=== PATIENT | female | born 1945 | race Hispanic/Latino ===

== ENCOUNTER → 2020-08-14 | Day surgery (SDC) | payer MEDICARE ==
[2020-08-11 11:57] LABS: BASOPHILS # (AUTO) 0.1 (0.0-0.1); BASOPHILS % 0.5 % (0.0-1.0); EOSINOPHILS # (AUTO) 0.3 (0.0-0.4); EOSINOPHILS % 2.9 % (0.0-6.0); HEMATOCRIT 43.4 % (34.2-44.1); HEMOGLOBIN 13.1 g/dL (12.0-16.0); LYMPHOCYTES # (AUTO) 3.4 (1.0-3.2); LYMPHOCYTES % 35.6 % (18.0-39.1); MEAN CORPUSCULAR HEMOGLOBIN 28.1 pg (28-32); MEAN CORPUSCULAR HGB CONC 30.2 g/dL (31-35); MEAN CORPUSCULAR VOLUME 92.9 fL (81-99); MONOCYTES # (AUTO) 0.6 (0.2-0.8); MONOCYTES % 5.7 % (4.4-11.3); NEUTROPHILS # (AUTO) 5.3 (2.1-6.9); PLATELET COUNT 217 x10e3/uL (140-360); RED BLOOD COUNT 4.67 x10e6/uL (3.6-5.1); RED CELL DISTRIBUTION WIDTH 15.5 % (11.7-14.4)
[2020-08-11 12:19] LABS: ANION GAP 14.1 mmol/L (8-16); CALCIUM 9.3 mg/dL (8.4-10.2); CREATININE, SERUM 0.94 mg/dL (0.57-1.11); POTASSIUM 5.1 mmol/L (3.5-5.1)
[~2020-08-14] MED LIST: B&O 60MG R/S 60 MG SUPP PR ONE; FLUCONAZOLE 200 MG/100 ML 100 ML IV ONE; GABAPENTIN300 MG PO; IOPAMIDOL 300MG/ML 50ML INFUS..BTL IV ONE; LIDOCAINE HCL 2% LOCAL INJ 5 ML SDV VIAL INJ ONE; MECLIZINE HCL12.5 MG PO; METOPROLOL TART25 MG PO; PIPERACILLIN/TAZOBAC 3.375 GM VIAL ONE; PROPOFOL IV EMULSION 10 MG/ML 20 ML VIAL ONE; SEVOFLURANE INHAL SOLN 250 ML PEN BTL ONE; SODIUM CHLORIDE 0.9% 50ML 50 ML ONE; VASOTEC10 M1 PO
[2020-08-14 13:25] VITALS: BP 119/68
== END | disposition home or self-care (01) ==
LOC: OR 08:57
PROVIDERS: ATTEND Urology
DX: N20.1 Calculus of ureter (principal); N39.0 Urinary tract infection, site not specified; N13.30 Unspecified hydronephrosis; Z43.6 Encounter for attention to other artificial openings of urinary tract; N13.8 Other obstructive and reflux uropathy; N28.89 Other specified disorders of kidney and ureter; G57.90 Unspecified mononeuropathy of unspecified lower limb; E11.9 Type 2 diabetes mellitus without complications; I10 Essential (primary) hypertension; M19.90 Unspecified osteoarthritis, unspecified site; Z01.812 Encounter for preprocedural laboratory examination; Z01.818 Encounter for other preprocedural examination; Z20.822 Contact with and (suspected) exposure to COVID-19; Z99.3 Dependence on wheelchair; Z86.19 Personal history of other infectious and parasitic diseases
CPT/HCPCS: 36415; 50389; 52332; 52344; 71046; 74018; 74420; 80048; 84550; 85025; 88300; C1758; C2617; J1450; J2001; J2543; J2704; Q9967; U0002

== ENCOUNTER 2020-08-20 18:11 | Inpatient (IN) | payer MEDICARE ==
[~2020-08-20] VITALS: Ht 162.6 cm; Wt 79.8 kg
[~2020-08-20 18:11] MED LIST changes: -B&O 60MG R/S 60 MG SUPP PR ONE; -FLUCONAZOLE 200 MG/100 ML 100 ML IV ONE; -IOPAMIDOL 300MG/ML 50ML INFUS..BTL IV ONE; -LIDOCAINE HCL 2% LOCAL INJ 5 ML SDV VIAL INJ ONE; -PIPERACILLIN/TAZOBAC 3.375 GM VIAL ONE; -PROPOFOL IV EMULSION 10 MG/ML 20 ML VIAL ONE; -SEVOFLURANE INHAL SOLN 250 ML PEN BTL ONE; -SODIUM CHLORIDE 0.9% 50ML 50 ML ONE
[2020-08-20] MEDS ORDERED: SODIUM CHLORIDE 0.9% 1000ML 1,000 ML IV STA ×2 (18:21)
[2020-08-20] MEDS ORDERED: ASPIRIN 81 MG CHEW TAB PO ONE (18:30)
[2020-08-20] MEDS ORDERED: SODIUM CHLORIDE 0.9% 500ML 500 ML IV STA (18:54)
[2020-08-20] MEDS ORDERED: NOREPINEPHRINE INJ 4MG/4ML 8 MG in DEXTROSE 5% 250ML 250 ML IV STA (19:06)
[2020-08-20 19:08] LABS: BASOPHILS # (AUTO) 0.1 (0.0-0.1); BASOPHILS % 0.3 % (0.0-1.0); EOSINOPHILS % 0.1 % (0.0-6.0); HEMATOCRIT 38.9 % (34.2-44.1); HEMOGLOBIN 12.3 g/dL (12.0-16.0); LYMPHOCYTES # (AUTO) 1.5 (1.0-3.2); LYMPHOCYTES % 6.8 % (18.0-39.1); MEAN CORPUSCULAR HEMOGLOBIN 28.4 pg (28-32); MEAN CORPUSCULAR HGB CONC 31.6 g/dL (31-35); MEAN CORPUSCULAR VOLUME 89.8 fL (81-99); MONOCYTES % 4.9 % (4.4-11.3); NEUTROPHILS # (AUTO) 18.6 (2.1-6.9); NEUTROPHILS % 86.5 % (38.7-80.0); PLATELET COUNT 244 x10e3/uL (140-360); RED BLOOD COUNT 4.33 x10e6/uL (3.6-5.1); RED CELL DISTRIBUTION WIDTH 15.1 % (11.7-14.4)
[2020-08-20] MEDS ORDERED: PIPERACILLIN/TAZOBAC 3.375 GM in SODIUM CHLORIDE 0.9% 50ML 50 ML IV ONE (19:10)
[2020-08-20 19:20] LABS: CLARITY,URINE CLOUDY (CLEAR); COLOR,URINE AMBER (YELLOW); KETONES,URINE NEGATIVE (NEGATIVE); LEUKOCYTE ESTERASE ,URINE LARGE (NEGATIVE); NITRITE,URINE NEGATIVE (NEGATIVE); PROTEIN,URINE DIPSTICK >=300 (NEGATIVE); URINE UROBILINOGEN 0.2 mg/dL (0.2 - 1)
[2020-08-20 19:25] LABS: ALBUMIN 2.9 g/dL (3.5-5.0); ALBUMIN/GLOBULIN RATIO 0.7 (0.8-2.0); ANION GAP 17.9 mmol/L (8-16); CALCIUM 9.8 mg/dL (8.4-10.2); CREATININE, SERUM 1.55 mg/dL (0.57-1.11); POTASSIUM 3.9 mmol/L (3.5-5.1)
[2020-08-20 19:31] LABS: CREATINE KINASE MB 0.3 ng/mL (0-5.0)
[2020-08-20 19:32] LABS: BACTERIA,URINE MODERATE /HPF; WBC,URINE (MAN) >50 /HPF (0-5)
[2020-08-20] MEDS ORDERED: SODIUM CHLORIDE 0.9% 50ML 50 ML ONE (20:18)
[2020-08-20] MEDS ORDERED: IOPAMIDOL 370 MG/ML 200 ML INFUS..BTL INJ ONE (20:18)
[2020-08-20] MEDS ORDERED: NOREPINEPHRINE INJ 4MG/4ML 8 MG in DEXTROSE 5% 250ML 250 ML IV PRN (20:30)
[2020-08-20] MEDS: SODIUM CHLORIDE 0.9% 1000ML 1,000 ML IV SCH (21:39)
[2020-08-20 22:45] VITALS: BP 87/59
[2020-08-20 23:00] VITALS: BP 79/56
[2020-08-20] MEDS ORDERED: NOREPINEPHRINE 8 MG/D5W 250 ML 250 ML ONE (23:58)
[2020-08-21] VITALS (26 sets, daily range): BP systolic 54–132; BP diastolic 38–93
[2020-08-21] MEDS ORDERED: SODIUM CHLORIDE 0.9% 1000ML 1,000 ML IV ONE
[2020-08-21] MEDS ORDERED: MAGNESIUM/ALUMINUM/SIMETHICONE 30 ML UDC PO PRN (00:15)
[2020-08-21] MEDS ORDERED: GENTAMICIN 120MG/NS 100ML 100 ML IV ONE (00:15)
[2020-08-21] MEDS ORDERED: VANCOMYCIN 1GM/NS 250 ML 250 ML IV ONE (00:15)
[2020-08-21] MEDS ORDERED: PIPERACILLIN/TAZOBAC 3.375 GM VIAL ONE (05:38)
[2020-08-21] MEDS ORDERED: SODIUM CHLORIDE 0.9% 0 ML ONE (05:39)
[2020-08-21] MEDS ORDERED: SODIUM CHLORIDE 0.9% 50ML 50 ML ONE (05:40)
[2020-08-21] MEDS: ACETAMINOPHEN 325 MG TAB PO PRN ×2 (05:42→06:29)
[2020-08-21] MEDS ORDERED: PIPER-TAZ 3.375 GM / NS 50ML IV SCH (06:00)
[2020-08-21] MEDS ORDERED: ZOLPIDEM TARTRATE 5 MG TAB PO PRN (06:00)
[2020-08-21] MEDS ORDERED: DOCUSATE SODIUM 100 MG CAP PO PRN (06:00)
[2020-08-21] MEDS ORDERED: MECLIZINE HCL 12.5 MG TAB PO PRN (06:00)
[2020-08-21 06:10] LABS: BASOPHILS # (AUTO) 0.1 (0.0-0.1); BASOPHILS % 0.3 % (0.0-1.0); EOSINOPHILS % 0.1 % (0.0-6.0); HEMATOCRIT 33.7 % (34.2-44.1); HEMOGLOBIN 10.6 g/dL (12.0-16.0); LYMPHOCYTES # (AUTO) 1.6 (1.0-3.2); LYMPHOCYTES % 6.5 % (18.0-39.1); MEAN CORPUSCULAR HEMOGLOBIN 28.5 pg (28-32); MEAN CORPUSCULAR HGB CONC 31.5 g/dL (31-35); MEAN CORPUSCULAR VOLUME 90.6 fL (81-99); MONOCYTES # (AUTO) 1.1 (0.2-0.8); MONOCYTES % 4.6 % (4.4-11.3); NEUTROPHILS # (AUTO) 20.7 (2.1-6.9); NEUTROPHILS % 84.8 % (38.7-80.0); PLATELET COUNT 197 x10e3/uL (140-360); RED BLOOD COUNT 3.72 x10e6/uL (3.6-5.1); RED CELL DISTRIBUTION WIDTH 15.4 % (11.7-14.4)
[2020-08-21 06:23] LABS: ALBUMIN 2.3 g/dL (3.5-5.0); ALBUMIN/GLOBULIN RATIO 0.6 (0.8-2.0); ANION GAP 14.1 mmol/L (8-16); CALCIUM 8.5 mg/dL (8.4-10.2); CREATININE, SERUM 1.23 mg/dL (0.57-1.11)
[2020-08-21 06:34] LABS: CREATINE KINASE MB 0.4 ng/mL (0-5.0)
[2020-08-21 06:48] LABS: POTASSIUM 5.1 mmol/L (3.5-5.1)
[2020-08-21] MEDS: SODIUM CHLORIDE 0.9% 1000ML 1,000 ML IV SCH (07:26)
[2020-08-21 07:29] LABS: BAND NEUTROPHILS % (MANUAL) 15 %; LYMPHOCYTES % (MANUAL) 3 % (19-48); METAMYELOCYTES % (MANUAL) 1 % (0-0); MONOCYTES % (MANUAL) 1 % (3.4-9.0); NEUTROPHILS % (MANUAL) 80 % (40-74)
[2020-08-21 07:30] LABS: ANISOCYTOSIS SLIGHT; PLATELET ESTIMATE ADEQUATE; PLATELET MORPHOLOGY COMMENT FEW LARGE; RBC MORPHOLOGY COMMENT NORMAL
[2020-08-21 07:35] LABS: CHOL/HDL RATIO 4.4 (3.0-3.6)
[2020-08-21] MEDS: HEPARIN SOD (PORCINE) 5,000 UNIT/ML VIAL SC SCH ×2 (08:19→20:16)
[2020-08-21 11:25] LABS: CREATINE KINASE MB 0.3 ng/mL (0-5.0)
[2020-08-21] MEDS: ONDANSETRON HCL INJ 2MG/ML 2ML 2 MG/ML VIAL IV PRN (14:05)
[2020-08-21] MEDS: PIPERACILLIN/TAZOBAC 3.375 GM in SODIUM CHLORIDE 0.9% 50ML 50 ML IV SCH ×2 (14:05→20:13)
[2020-08-21] MEDS ORDERED: LACTATED RINGER'S 1,000 ML INJ ONE (15:15)
[2020-08-21] MEDS: GABAPENTIN 300 MG CAP PO SCH (20:13)
[2020-08-21 20:14] LABS: CREATINE KINASE MB 0.3 ng/mL (0-5.0)
[2020-08-21] MEDS: PROMETHAZINE 12.5MG/ NACL 0.9% 12.5 MG/50 ML BAG IV PRN (20:55)
[2020-08-21] MEDS: HYDROMORPHONE 1MG/1ML INJ IV PRN (21:06)
[2020-08-22] VITALS (21 sets, daily range): BP systolic 93–154; BP diastolic 53–84
[2020-08-22] MEDS: HYDROMORPHONE 1MG/1ML INJ IV PRN (03:05)
[2020-08-22] MEDS: PROMETHAZINE 12.5MG/ NACL 0.9% 12.5 MG/50 ML BAG IV PRN ×2 (03:05→15:53)
[2020-08-22 04:03] LABS: BASOPHILS # (AUTO) 0.1 (0.0-0.1); BASOPHILS % 0.4 % (0.0-1.0); EOSINOPHILS # (AUTO) 0.1 (0.0-0.4); EOSINOPHILS % 0.5 % (0.0-6.0); HEMOGLOBIN 10.8 g/dL (12.0-16.0); LYMPHOCYTES # (AUTO) 2.4 (1.0-3.2); LYMPHOCYTES % 8.2 % (18.0-39.1); MEAN CORPUSCULAR HGB CONC 30.9 g/dL (31-35); MEAN CORPUSCULAR VOLUME 90.7 fL (81-99); MONOCYTES # (AUTO) 1.4 (0.2-0.8); MONOCYTES % 4.9 % (4.4-11.3); NEUTROPHILS # (AUTO) 23.5 (2.1-6.9); NEUTROPHILS % 80.5 % (38.7-80.0); PLATELET COUNT 227 x10e3/uL (140-360); RED BLOOD COUNT 3.86 x10e6/uL (3.6-5.1); RED CELL DISTRIBUTION WIDTH 15.9 % (11.7-14.4)
[2020-08-22 04:22] LABS: ALBUMIN 2.2 g/dL (3.5-5.0); ALBUMIN/GLOBULIN RATIO 0.6 (0.8-2.0); ANION GAP 13.5 mmol/L (8-16); CALCIUM 8.4 mg/dL (8.4-10.2); CREATININE, SERUM 1.3 mg/dL (0.57-1.11); POTASSIUM 4.5 mmol/L (3.5-5.1)
[2020-08-22] MEDS ORDERED: LACTATED RINGER'S 1,000 ML ONE (05:51)
[2020-08-22] MEDS: PIPERACILLIN/TAZOBAC 3.375 GM in SODIUM CHLORIDE 0.9% 50ML 50 ML IV SCH (06:07)
[2020-08-22] MEDS ORDERED: MEROPENEM 500MG 500 MG in SODIUM CHLORIDE 0.9% 50ML 50 ML IV SCH (08:16)
[2020-08-22] MEDS: HEPARIN SOD (PORCINE) 5,000 UNIT/ML VIAL SC SCH ×2 (08:58→20:22)
[2020-08-22] MEDS ORDERED: ACETAMINOPHEN/CODEINE 300MG - 30MG TAB PO PRN (09:00)
[2020-08-22] MEDS ORDERED: ACETAMINOPHEN 1000 MG/100 ML IV PRN (10:30)
[2020-08-22] MEDS ORDERED: GENTAMICIN SULFATE 200 MG in SODIUM CHLORIDE 0.9% 100 ML IV ONE (16:45)
[2020-08-22] MEDS ORDERED: ACETAMINOPHEN 1000 MG/100 ML 100 ML IV ONE (18:33)
[2020-08-22] MEDS ORDERED: PANTOPRAZOLE 40 MG 10ML VIAL IV STA (18:58)
[2020-08-22] MEDS ORDERED: LACTATED RINGER'S 1,000 ML INJ ONE (19:00)
[2020-08-22] MEDS ORDERED: SODIUM CHLORIDE 0.9% 500ML 500 ML ONE (19:27)
[2020-08-22] MEDS: ONDANSETRON HCL INJ 2MG/ML 2ML 2 MG/ML VIAL IV PRN (20:22)
[2020-08-22] MEDS: GABAPENTIN 300 MG CAP PO SCH (20:22)
[2020-08-22] MEDS: MEROPENEM 500MG/ NS 50ML 50 ML IV SCH (20:22)
[2020-08-22] MEDS: TRAMADOL HCL 50 MG TAB PO PRN (20:22)
[2020-08-22] MEDS: METRONIDAZOLE 500MG/NS 100ML 100 ML IV SCH (20:22)
[2020-08-23] VITALS (15 sets, daily range): BP systolic 103–154; BP diastolic 59–82
[2020-08-23] MEDS ORDERED: LACTATED RINGER'S 1,000 ML ONE (04:31)
[2020-08-23] MEDS: PROMETHAZINE 12.5MG/ NACL 0.9% 12.5 MG/50 ML BAG IV PRN (04:36)
[2020-08-23] MEDS: LACTATED RINGER'S 1,000 ML INJ SCH ×2 (04:43→16:38)
[2020-08-23] MEDS: MEROPENEM 500MG/ NS 50ML 50 ML IV SCH ×3 (04:43→22:00)
[2020-08-23] MEDS: METRONIDAZOLE 500MG/NS 100ML 100 ML IV SCH (04:53)
[2020-08-23 05:26] LABS: ALBUMIN/GLOBULIN RATIO 0.5 (0.8-2.0); ANION GAP 11.4 mmol/L (8-16); CALCIUM 8.7 mg/dL (8.4-10.2); CREATININE, SERUM 1.05 mg/dL (0.57-1.11); POTASSIUM 4.4 mmol/L (3.5-5.1)
[2020-08-23 06:53] LABS: BASOPHILS # (AUTO) 0.1 (0.0-0.1); BASOPHILS % 0.3 % (0.0-1.0); EOSINOPHILS # (AUTO) 0.4 (0.0-0.4); EOSINOPHILS % 2.2 % (0.0-6.0); HEMATOCRIT 33.6 % (34.2-44.1); HEMOGLOBIN 10.3 g/dL (12.0-16.0); LYMPHOCYTES # (AUTO) 2.4 (1.0-3.2); LYMPHOCYTES % 14.3 % (18.0-39.1); MEAN CORPUSCULAR HEMOGLOBIN 28.1 pg (28-32); MEAN CORPUSCULAR HGB CONC 30.7 g/dL (31-35); MEAN CORPUSCULAR VOLUME 91.6 fL (81-99); MONOCYTES # (AUTO) 0.7 (0.2-0.8); MONOCYTES % 4.2 % (4.4-11.3); NEUTROPHILS % 78.1 % (38.7-80.0); PLATELET COUNT 214 x10e3/uL (140-360); RED BLOOD COUNT 3.67 x10e6/uL (3.6-5.1); RED CELL DISTRIBUTION WIDTH 15.5 % (11.7-14.4)
[2020-08-23] MEDS: PANTOPRAZOLE 40 MG 10ML VIAL IV SCH ×2 (08:00→16:38)
[2020-08-23] MEDS: HEPARIN SOD (PORCINE) 5,000 UNIT/ML VIAL SC SCH ×2 (08:01→21:00)
[2020-08-23] MEDS ORDERED: SODIUM CHLORIDE 0.9% 250ML 250 ML ONE (12:38)
[2020-08-23] MEDS: TRAMADOL HCL 50 MG TAB PO PRN (13:00)
[2020-08-23] MEDS: GABAPENTIN 300 MG CAP PO SCH (21:00)
[2020-08-24] VITALS (8 sets, daily range): BP systolic 131–149; BP diastolic 67–76
[2020-08-24] MEDS: ACETAMINOPHEN 325 MG TAB PO PRN ×2 (02:06→14:52)
[2020-08-24] MEDS: MEROPENEM 500MG/ NS 50ML 50 ML IV SCH ×3 (06:00→21:15)
[2020-08-24] MEDS: LACTATED RINGER'S 1,000 ML INJ SCH ×2 (06:40→20:47)
[2020-08-24] MEDS: PANTOPRAZOLE 40 MG 10ML VIAL IV SCH ×2 (09:00→16:25)
[2020-08-24] MEDS: HEPARIN SOD (PORCINE) 5,000 UNIT/ML VIAL SC SCH ×2 (09:00→20:52)
[2020-08-24 09:51] LABS: BASOPHILS % 0.5 % (0.0-1.0); EOSINOPHILS # (AUTO) 0.4 (0.0-0.4); HEMATOCRIT 32.3 % (34.2-44.1); LYMPHOCYTES # (AUTO) 1.8 (1.0-3.2); LYMPHOCYTES % 30.2 % (18.0-39.1); MEAN CORPUSCULAR HEMOGLOBIN 27.5 pg (28-32); MONOCYTES # (AUTO) 0.5 (0.2-0.8); MONOCYTES % 8.6 % (4.4-11.3); NEUTROPHILS # (AUTO) 3.2 (2.1-6.9); NEUTROPHILS % 54.4 % (38.7-80.0); PLATELET COUNT 202 x10e3/uL (140-360); RED BLOOD COUNT 3.63 x10e6/uL (3.6-5.1); RED CELL DISTRIBUTION WIDTH 15.1 % (11.7-14.4)
[2020-08-24 10:07] LABS: ANION GAP 10.7 mmol/L (8-16); BLOOD UREA NITROGEN 16 mg/dL (7-26); BUN/CREATININE RATIO 20 (6-25); CALCIUM 8.4 mg/dL (8.4-10.2); CARBON DIOXIDE 26 mmol/L (22-29); CHLORIDE 106 mmol/L (98-107); CREATININE, SERUM 0.82 mg/dL (0.57-1.11); EST GLOMERULAR FILTRATION RATE > 60 ML/MIN (60-); GLUCOSE 76 mg/dL (74-118); POTASSIUM 3.7 mmol/L (3.5-5.1); SODIUM 139 mmol/L (136-145)
[2020-08-24] MEDS: GABAPENTIN 300 MG CAP PO SCH (20:58)
[2020-08-25] VITALS (8 sets, daily range): BP systolic 137–159; BP diastolic 71–85
[2020-08-25] MEDS: ACETAMINOPHEN 325 MG TAB PO PRN ×2 (01:44→21:48)
[2020-08-25] MEDS: MEROPENEM 500MG/ NS 50ML 50 ML IV SCH ×3 (05:35→21:48)
[2020-08-25 06:09] LABS: BASOPHILS % 0.4 % (0.0-1.0); EOSINOPHILS # (AUTO) 0.2 (0.0-0.4); EOSINOPHILS % 4.7 % (0.0-6.0); HEMATOCRIT 31.9 % (34.2-44.1); HEMOGLOBIN 10.2 g/dL (12.0-16.0); LYMPHOCYTES # (AUTO) 1.7 (1.0-3.2); LYMPHOCYTES % 36.6 % (18.0-39.1); MEAN CORPUSCULAR HEMOGLOBIN 27.9 pg (28-32); MEAN CORPUSCULAR VOLUME 87.4 fL (81-99); MONOCYTES # (AUTO) 0.5 (0.2-0.8); MONOCYTES % 11.8 % (4.4-11.3); NEUTROPHILS # (AUTO) 2.1 (2.1-6.9); NEUTROPHILS % 45.8 % (38.7-80.0); PLATELET COUNT 218 x10e3/uL (140-360); RED BLOOD COUNT 3.65 x10e6/uL (3.6-5.1)
[2020-08-25 06:53] LABS: ANION GAP 8.4 mmol/L (8-16); BLOOD UREA NITROGEN 9 mg/dL (7-26); BUN/CREATININE RATIO 11 (6-25); CARBON DIOXIDE 27 mmol/L (22-29); CHLORIDE 103 mmol/L (98-107); CREATININE, SERUM 0.83 mg/dL (0.57-1.11); EST GLOMERULAR FILTRATION RATE > 60 ML/MIN (60-); GLUCOSE 150 mg/dL (74-118); POTASSIUM 3.4 mmol/L (3.5-5.1); SODIUM 135 mmol/L (136-145)
[2020-08-25 08:13] LABS: ANISOCYTOSIS SLIGHT; EOSINOPHILS % (MANUAL) 5 % (0-7); LYMPHOCYTES % (MANUAL) 31 % (19-48); MONOCYTES % (MANUAL) 11 % (3.4-9.0); MYELOCYTES % (MANUAL) 1 % (0-0); NEUTROPHILS % (MANUAL) 46 % (40-74); PLATELET ESTIMATE ADEQUATE
[2020-08-25 08:14] LABS: PLATELET MORPHOLOGY COMMENT FEW LARGE; RBC MORPHOLOGY COMMENT NORMAL
[2020-08-25] MEDS: HEPARIN SOD (PORCINE) 5,000 UNIT/ML VIAL SC SCH ×2 (08:32→21:46)
[2020-08-25] MEDS: PANTOPRAZOLE 40 MG 10ML VIAL IV SCH ×2 (08:32→16:30)
[2020-08-25] MEDS: LACTATED RINGER'S 1,000 ML INJ SCH ×2 (16:21→23:46)
[2020-08-25] MEDS: GABAPENTIN 300 MG CAP PO SCH (21:45)
[2020-08-26] VITALS (8 sets, daily range): BP systolic 138–159; BP diastolic 77–86
[2020-08-26] MEDS: MEROPENEM 500MG/ NS 50ML 50 ML IV SCH ×3 (05:30→21:25)
[2020-08-26 08:30] LABS: BASOPHILS # (AUTO) 0.1 (0.0-0.1); BASOPHILS % 0.9 % (0.0-1.0); EOSINOPHILS # (AUTO) 0.3 (0.0-0.4); HEMATOCRIT 33.6 % (34.2-44.1); HEMOGLOBIN 10.5 g/dL (12.0-16.0); LYMPHOCYTES # (AUTO) 2.1 (1.0-3.2); MEAN CORPUSCULAR HEMOGLOBIN 27.3 pg (28-32); MEAN CORPUSCULAR HGB CONC 31.3 g/dL (31-35); MEAN CORPUSCULAR VOLUME 87.5 fL (81-99); MONOCYTES # (AUTO) 0.6 (0.2-0.8); MONOCYTES % 11.5 % (4.4-11.3); NEUTROPHILS # (AUTO) 2.3 (2.1-6.9); PLATELET COUNT 250 x10e3/uL (140-360); RED BLOOD COUNT 3.84 x10e6/uL (3.6-5.1); RED CELL DISTRIBUTION WIDTH 15.1 % (11.7-14.4)
[2020-08-26 08:44] LABS: ANION GAP 11.5 mmol/L (8-16); BLOOD UREA NITROGEN 7 mg/dL (7-26); BUN/CREATININE RATIO 9 (6-25); CALCIUM 8.8 mg/dL (8.4-10.2); CARBON DIOXIDE 26 mmol/L (22-29); CHLORIDE 104 mmol/L (98-107); CREATININE, SERUM 0.76 mg/dL (0.57-1.11); EST GLOMERULAR FILTRATION RATE > 60 ML/MIN (60-); GLUCOSE 88 mg/dL (74-118); POTASSIUM 3.5 mmol/L (3.5-5.1); SODIUM 138 mmol/L (136-145)
[2020-08-26] MEDS: PANTOPRAZOLE 40 MG 10ML VIAL IV SCH ×2 (09:02→17:17)
[2020-08-26] MEDS: HEPARIN SOD (PORCINE) 5,000 UNIT/ML VIAL SC SCH ×2 (09:03→21:20)
[2020-08-26] MEDS: LACTATED RINGER'S 1,000 ML INJ SCH (12:38)
[2020-08-26] MEDS: GABAPENTIN 300 MG CAP PO SCH (21:20)
[2020-08-27] VITALS (8 sets, daily range): BP systolic 131–154; BP diastolic 62–93
[2020-08-27] MEDS: LACTATED RINGER'S 1,000 ML INJ SCH ×2 (03:25→15:35)
[2020-08-27] MEDS: ACETAMINOPHEN 325 MG TAB PO PRN (03:31)
[2020-08-27] MEDS: MEROPENEM 500MG/ NS 50ML 50 ML IV SCH ×3 (06:30→21:25)
[2020-08-27] MEDS: PANTOPRAZOLE 40 MG 10ML VIAL IV SCH ×2 (08:58→17:36)
[2020-08-27] MEDS: HEPARIN SOD (PORCINE) 5,000 UNIT/ML VIAL SC SCH ×2 (08:59→21:25)
[2020-08-27] MEDS: GABAPENTIN 300 MG CAP PO SCH (21:25)
[2020-08-28] VITALS: BP 158/76
[2020-08-28 04:00] VITALS: BP 138/75
[2020-08-28] MEDS: LACTATED RINGER'S 1,000 ML INJ SCH (05:13)
[2020-08-28] MEDS: MEROPENEM 500MG/ NS 50ML 50 ML IV SCH ×2 (05:41→14:02)
[2020-08-28 08:07] VITALS: BP 140/75
[2020-08-28 08:45] VITALS: BP 140/75
[2020-08-28] MEDS: PANTOPRAZOLE 40 MG 10ML VIAL IV SCH (08:48)
[2020-08-28 11:57] VITALS: BP 143/74
[2020-08-28] MEDS ORDERED: PANTOPRAZOLE SO40 MG PO (12:46)
[2020-08-28] MEDS ORDERED: ONDANSETRON HCL 4 MG ORAL DISINTEGRATING TAB PO PRN (13:45)
[2020-08-28] MEDS ORDERED: PANTOPRAZOLE SOD 40 MG TABEC PO SCH (16:30)
== END 2020-08-28 15:20 | disposition home or self-care (01) | DRG 698 ==
LOC: ER 19:11 → ERHOLD 19:14 → ICU 23:00 → MED/SURG3 08-23 11:11
PROVIDERS: ADMIT Internal Medicine; ATTEND Internal Medicine
PROC: 02HV33Z Insertion of Infusion Device into Superior Vena Cava, Percutaneous Approach (ICD-10-PCS; principal; 2020-08-25)
PROC: B548ZZA Ultrasonography of Superior Vena Cava, Guidance (ICD-10-PCS; 2020-08-25)
DX: T83.511A Infection and inflammatory reaction due to indwelling urethral catheter, initial encounter (principal); A41.51 Sepsis due to Escherichia coli [E. coli]; R65.21 Severe sepsis with septic shock; G93.41 Metabolic encephalopathy; N17.9 Acute kidney failure, unspecified; N10 Acute pyelonephritis; Z16.12 Extended spectrum beta lactamase (ESBL) resistance; Z93.6 Other artificial openings of urinary tract status; Z87.442 Personal history of urinary calculi; Z87.440 Personal history of urinary (tract) infections; K83.8 Other specified diseases of biliary tract; T83.592A Infection and inflammatory reaction due to indwelling ureteral stent, initial encounter; R73.9 Hyperglycemia, unspecified; E66.9 Obesity, unspecified; Z68.30 Body mass index [BMI] 30.0-30.9, adult; B96.20 Unspecified Escherichia coli [E. coli] as the cause of diseases classified elsewhere; I12.9 Hypertensive chronic kidney disease with stage 1 through stage 4 chronic kidney disease, or unspecified chronic kidney disease; N18.9 Chronic kidney disease, unspecified; Z20.822 Contact with and (suspected) exposure to COVID-19
CPT/HCPCS: 36415; 36569; 51700; 71045; 74176; 74177; 80048; 80053; 80061; 81001; 82550; 82553; 83036; 83605; 84484; 85025; 87040; 87071; 87086; 87186; 87205; 93005; 93306; 97139; 99285; J1170; J1580; J1644; J2185; J2405; J2543; J2550; J3370; J7030; J7040; J7050; J7121; Q9967; U0002

== ENCOUNTER 2020-09-17 07:56 | Inpatient (IN) | payer MEDICARE ==
[~2020-09-17] VITALS: Ht 162.6 cm; Wt 79.8 kg
[~2020-09-17 07:56] MED LIST changes: +PANTOPRAZOLE SO40 MG PO
[2020-09-17] MEDS ORDERED: SODIUM CHLORIDE 0.9% 1000ML 1,000 ML IV STA (09:05)
[2020-09-17 09:17] LABS: BASOPHILS # (AUTO) 0.1 (0.0-0.1); BASOPHILS % 0.4 % (0.0-1.0); EOSINOPHILS # (AUTO) 0.1 (0.0-0.4); HEMATOCRIT 39.1 % (34.2-44.1); HEMOGLOBIN 12.3 g/dL (12.0-16.0); LYMPHOCYTES # (AUTO) 1.9 (1.0-3.2); LYMPHOCYTES % 15.7 % (18.0-39.1); MEAN CORPUSCULAR HEMOGLOBIN 27.2 pg (28-32); MEAN CORPUSCULAR HGB CONC 31.5 g/dL (31-35); MEAN CORPUSCULAR VOLUME 86.5 fL (81-99); MONOCYTES # (AUTO) 0.9 (0.2-0.8); MONOCYTES % 7.4 % (4.4-11.3); NEUTROPHILS % 75.2 % (38.7-80.0); PLATELET COUNT 239 x10e3/uL (140-360); RED BLOOD COUNT 4.52 x10e6/uL (3.6-5.1); RED CELL DISTRIBUTION WIDTH 14.6 % (11.7-14.4)
[2020-09-17 09:31] LABS: CLARITY,URINE CLOUDY (CLEAR); COLOR,URINE YELLOW (YELLOW); KETONES,URINE TRACE (NEGATIVE); LEUKOCYTE ESTERASE ,URINE SMALL (NEGATIVE); NITRITE,URINE POSITIVE (NEGATIVE); PROTEIN,URINE DIPSTICK 2+ (NEGATIVE); URINE UROBILINOGEN 0.2 mg/dL (0.2 - 1)
[2020-09-17 09:34] LABS: INR 1.07; PROTHROMBIN TIME 14.6 seconds (11.9-14.5)
[2020-09-17 09:35] LABS: ALBUMIN 3.4 g/dL (3.5-5.0); ALBUMIN/GLOBULIN RATIO 0.7 (0.8-2.0); CALCIUM 10.3 mg/dL (8.4-10.2); CREATININE, SERUM 1.14 mg/dL (0.57-1.11); MAGNESIUM 1.6 MG/DL (1.3-2.1); PARTIAL THROMBOPLASTIN TIME 37.1 seconds (23.8-35.5)
[2020-09-17] MEDS ORDERED: OXYBUTYNIN CHLOR5 MG PO (09:35)
[2020-09-17] MEDS ORDERED: CEFUROXIME250 MG PO (09:35)
[2020-09-17] MEDS ORDERED: TYLENOL # 31 EA PO (09:35)
[2020-09-17] MEDS ORDERED: VASOTEC10 MG PO (09:35)
[2020-09-17] MEDS ORDERED: LOPRESSOR25 MG PO (09:35)
[2020-09-17 09:41] LABS: CREATINE KINASE MB 0.2 ng/mL (0-5.0)
[2020-09-17 09:44] LABS: B-TYPE NATRIURETIC PEPTIDE2 79.6 pg/mL (0-100)
[2020-09-17 09:46] LABS: BACTERIA,URINE MANY /HPF; EPITHELIAL CELLS,URINE FEW /LPF; RBC,URINE >50 /HPF (0-5); WBC,URINE (MAN) >50 /HPF (0-5)
[2020-09-17] MEDS: MEROPENEM 1GM 100 ML IV SCH ×2 (10:02→17:00)
[2020-09-17] MEDS ORDERED: ONDANSETRON HCL INJ 2MG/ML 2ML 2 MG/ML VIAL IV PRN (10:15)
[2020-09-17] MEDS: SODIUM CHLORIDE 0.9% 1000ML 1,000 ML IV SCH ×2 (10:50→12:50)
[2020-09-17 11:31] VITALS: BP 127/76
[2020-09-17 12:15] VITALS: BP 127/76
[2020-09-17] MEDS ORDERED: ACETAMINOPHEN 325 MG TAB PO PRN (13:15)
[2020-09-17] MEDS ORDERED: ACETAMINOPHEN 325 MG TAB ONE (13:16)
[2020-09-17 16:49] VITALS: BP 139/68
[2020-09-17] MEDS ORDERED: DOCUSATE SODIUM 100 MG CAP PO PRN (17:00)
[2020-09-17 20:00] VITALS: BP 127/80
[2020-09-17] MEDS: ACETAMINOPHEN 325 MG TAB PO PRN (20:00)
[2020-09-17] MEDS ORDERED: ZOLPIDEM TARTRATE 5 MG TAB PO PRN (21:00)
[2020-09-17] MEDS: ONDANSETRON HCL INJ 2MG/ML 2ML 2 MG/ML VIAL IV PRN (21:24)
[2020-09-18] VITALS (7 sets, daily range): BP systolic 134–160; BP diastolic 67–93
[2020-09-18] MEDS: SODIUM CHLORIDE 0.9% 1000ML 1,000 ML IV SCH ×2 (01:12→16:54)
[2020-09-18] MEDS: MEROPENEM 1GM 100 ML IV SCH ×3 (01:12→17:52)
[2020-09-18 06:00] LABS: BASOPHILS # (AUTO) 0.1 (0.0-0.1); BASOPHILS % 0.6 % (0.0-1.0); EOSINOPHILS # (AUTO) 0.1 (0.0-0.4); EOSINOPHILS % 0.9 % (0.0-6.0); HEMATOCRIT 35.1 % (34.2-44.1); HEMOGLOBIN 11.1 g/dL (12.0-16.0); LYMPHOCYTES # (AUTO) 1.2 (1.0-3.2); LYMPHOCYTES % 10.9 % (18.0-39.1); MEAN CORPUSCULAR HEMOGLOBIN 27.7 pg (28-32); MEAN CORPUSCULAR HGB CONC 31.6 g/dL (31-35); MEAN CORPUSCULAR VOLUME 87.5 fL (81-99); MONOCYTES # (AUTO) 1.1 (0.2-0.8); MONOCYTES % 9.9 % (4.4-11.3); NEUTROPHILS # (AUTO) 8.4 (2.1-6.9); NEUTROPHILS % 77.3 % (38.7-80.0); PLATELET COUNT 209 x10e3/uL (140-360); RED BLOOD COUNT 4.01 x10e6/uL (3.6-5.1); RED CELL DISTRIBUTION WIDTH 14.6 % (11.7-14.4)
[2020-09-18 06:39] LABS: ALANINE AMINOTRANSFERASE 12 IU/L (0-55); ALBUMIN 2.7 g/dL (3.5-5.0); ALBUMIN/GLOBULIN RATIO 0.7 (0.8-2.0); ALKALINE PHOSPHATASE 66 IU/L (40-150); ANION GAP 13.8 mmol/L (8-16); BLOOD UREA NITROGEN 16 mg/dL (7-26); BUN/CREATININE RATIO 18 (6-25); CALCIUM 8.8 mg/dL (8.4-10.2); CARBON DIOXIDE 23 mmol/L (22-29); CHLORIDE 105 mmol/L (98-107); CREATININE, SERUM 0.87 mg/dL (0.57-1.11); EST GLOMERULAR FILTRATION RATE > 60 ML/MIN (60-); GLUCOSE 98 mg/dL (74-118); POTASSIUM 4.8 mmol/L (3.5-5.1); SODIUM 137 mmol/L (136-145)
[2020-09-18] MEDS: ACETAMINOPHEN 325 MG TAB PO PRN ×2 (09:10→18:15)
[2020-09-18] MEDS: METOPROLOL TARTRATE 25 MG TAB PO SCH (09:21)
[2020-09-18] MEDS: ONDANSETRON HCL INJ 2MG/ML 2ML 2 MG/ML VIAL IV PRN (17:51)
[2020-09-19] VITALS (8 sets, daily range): BP systolic 151–173; BP diastolic 70–86
[2020-09-19] MEDS: SODIUM CHLORIDE 0.9% 1000ML 1,000 ML IV SCH ×3 (01:50→20:52)
[2020-09-19] MEDS: MEROPENEM 1GM 100 ML IV SCH ×2 (01:50→10:33)
[2020-09-19] MEDS ORDERED: SODIUM CHLORIDE 0.9% 50ML 50 ML ONE (01:53)
[2020-09-19] MEDS: ACETAMINOPHEN 325 MG TAB PO PRN ×2 (04:31→20:52)
[2020-09-19] MEDS: ONDANSETRON HCL INJ 2MG/ML 2ML 2 MG/ML VIAL IV PRN ×3 (09:09→18:45)
[2020-09-19] MEDS: METOPROLOL TARTRATE 25 MG TAB PO SCH (10:33)
[2020-09-19] MEDS: PIPERACILLIN/TAZOBAC 3.375 GM in SODIUM CHLORIDE 0.9% 50ML 50 ML IV SCH (20:52)
[2020-09-20] VITALS (8 sets, daily range): BP systolic 134–164; BP diastolic 71–82
[2020-09-20] MEDS: PIPERACILLIN/TAZOBAC 3.375 GM in SODIUM CHLORIDE 0.9% 50ML 50 ML IV SCH ×3 (05:27→21:16)
[2020-09-20 06:54] LABS: BASOPHILS % 0.6 % (0.0-1.0); EOSINOPHILS # (AUTO) 0.4 (0.0-0.4); EOSINOPHILS % 5.7 % (0.0-6.0); HEMATOCRIT 33.8 % (34.2-44.1); LYMPHOCYTES # (AUTO) 1.7 (1.0-3.2); MEAN CORPUSCULAR HEMOGLOBIN 27.7 pg (28-32); MEAN CORPUSCULAR HGB CONC 32.5 g/dL (31-35); MEAN CORPUSCULAR VOLUME 85.1 fL (81-99); MONOCYTES # (AUTO) 0.7 (0.2-0.8); MONOCYTES % 9.6 % (4.4-11.3); NEUTROPHILS # (AUTO) 4.2 (2.1-6.9); NEUTROPHILS % 59.8 % (38.7-80.0); PLATELET COUNT 260 x10e3/uL (140-360); RED BLOOD COUNT 3.97 x10e6/uL (3.6-5.1); RED CELL DISTRIBUTION WIDTH 13.8 % (11.7-14.4)
[2020-09-20 07:27] LABS: ANION GAP 15.6 mmol/L (8-16); BLOOD UREA NITROGEN 10 mg/dL (7-26); BUN/CREATININE RATIO 13 (6-25); CALCIUM 8.8 mg/dL (8.4-10.2); CARBON DIOXIDE 22 mmol/L (22-29); CHLORIDE 106 mmol/L (98-107); CREATININE, SERUM 0.78 mg/dL (0.57-1.11); EST GLOMERULAR FILTRATION RATE > 60 ML/MIN (60-); GLUCOSE 77 mg/dL (74-118); POTASSIUM 3.6 mmol/L (3.5-5.1); SODIUM 140 mmol/L (136-145)
[2020-09-20] MEDS: ACETAMINOPHEN 325 MG TAB PO PRN ×2 (07:46→23:46)
[2020-09-20] MEDS: SODIUM CHLORIDE 0.9% 1000ML 1,000 ML IV SCH ×2 (07:46→18:15)
[2020-09-20] MEDS: METOPROLOL TARTRATE 25 MG TAB PO SCH (08:03)
[2020-09-21] VITALS: BP 164/75
[2020-09-21 04:00] VITALS: BP 149/79
[2020-09-21] MEDS: SODIUM CHLORIDE 0.9% 1000ML 1,000 ML IV SCH ×2 (04:15→14:15)
[2020-09-21] MEDS: PIPERACILLIN/TAZOBAC 3.375 GM in SODIUM CHLORIDE 0.9% 50ML 50 ML IV SCH ×2 (05:41→14:00)
[2020-09-21] MEDS ORDERED: NITROFURANTOIN100 MG PO (06:19)
[2020-09-21 07:32] VITALS: BP 160/87
[2020-09-21 07:39] VITALS: BP 160/87
[2020-09-21] MEDS: METOPROLOL TARTRATE 25 MG TAB PO SCH (07:49)
[2020-09-21 08:57] LABS: BASOPHILS # (AUTO) 0.1 (0.0-0.1); BASOPHILS % 0.8 % (0.0-1.0); EOSINOPHILS # (AUTO) 0.3 (0.0-0.4); EOSINOPHILS % 4.3 % (0.0-6.0); HEMATOCRIT 37.4 % (34.2-44.1); HEMOGLOBIN 12.3 g/dL (12.0-16.0); LYMPHOCYTES # (AUTO) 2.5 (1.0-3.2); LYMPHOCYTES % 34.4 % (18.0-39.1); MEAN CORPUSCULAR HEMOGLOBIN 27.8 pg (28-32); MEAN CORPUSCULAR HGB CONC 32.9 g/dL (31-35); MEAN CORPUSCULAR VOLUME 84.4 fL (81-99); MONOCYTES # (AUTO) 0.5 (0.2-0.8); MONOCYTES % 6.9 % (4.4-11.3); NEUTROPHILS # (AUTO) 3.8 (2.1-6.9); NEUTROPHILS % 53.3 % (38.7-80.0); PLATELET COUNT 306 x10e3/uL (140-360); RED BLOOD COUNT 4.43 x10e6/uL (3.6-5.1); RED CELL DISTRIBUTION WIDTH 13.8 % (11.7-14.4)
[2020-09-21 09:20] LABS: BLOOD UREA NITROGEN 10 mg/dL (7-26); BUN/CREATININE RATIO 11 (6-25); CALCIUM 9.3 mg/dL (8.4-10.2); CARBON DIOXIDE 23 mmol/L (22-29); CHLORIDE 104 mmol/L (98-107); CREATININE, SERUM 0.88 mg/dL (0.57-1.11); EST GLOMERULAR FILTRATION RATE > 60 ML/MIN (60-); GLUCOSE 99 mg/dL (74-118); SODIUM 141 mmol/L (136-145)
[2020-09-21 11:12] VITALS: BP 166/76
[2020-09-21] MEDS ORDERED: ONDANSETRON HCL 4 MG ORAL DISINTEGRATING TAB PO PRN (12:45)
[2020-09-21] MEDS ORDERED: FOSFOMYCIN TROMETHAMINE 3 GM PACKET PO ONE (14:15)
== END 2020-09-21 14:55 | disposition home or self-care (01) | DRG 698 ==
LOC: ER 08:33 → ERHOLD 10:04 → MED/SURG3 11:31
PROVIDERS: ADMIT Internal Medicine; ATTEND Internal Medicine
DX: T83.592A Infection and inflammatory reaction due to indwelling ureteral stent, initial encounter (principal); A41.51 Sepsis due to Escherichia coli [E. coli]; N17.9 Acute kidney failure, unspecified; N39.0 Urinary tract infection, site not specified; Z16.12 Extended spectrum beta lactamase (ESBL) resistance; E83.52 Hypercalcemia; E66.9 Obesity, unspecified; Z68.30 Body mass index [BMI] 30.0-30.9, adult; B96.20 Unspecified Escherichia coli [E. coli] as the cause of diseases classified elsewhere; Z20.822 Contact with and (suspected) exposure to COVID-19
CPT/HCPCS: 36415; 51700; 71045; 80048; 80053; 80061; 81001; 82550; 82553; 83036; 83605; 83735; 83880; 84484; 85025; 85610; 85730; 87040; 87086; 87186; 93005; 99284; J2405; J2543; J7030; U0002

== ENCOUNTER → 2020-09-30 | Day surgery (SDC) | payer MEDICARE ==
[2020-09-28 11:36] LABS: BASOPHILS % 0.4 % (0.0-1.0); EOSINOPHILS # (AUTO) 0.2 (0.0-0.4); EOSINOPHILS % 3.5 % (0.0-6.0); HEMATOCRIT 37.8 % (34.2-44.1); HEMOGLOBIN 11.9 g/dL (12.0-16.0); LYMPHOCYTES # (AUTO) 2.6 (1.0-3.2); LYMPHOCYTES % 38.3 % (18.0-39.1); MEAN CORPUSCULAR HEMOGLOBIN 27.7 pg (28-32); MEAN CORPUSCULAR HGB CONC 31.5 g/dL (31-35); MEAN CORPUSCULAR VOLUME 87.9 fL (81-99); MONOCYTES # (AUTO) 0.5 (0.2-0.8); MONOCYTES % 6.9 % (4.4-11.3); NEUTROPHILS # (AUTO) 3.4 (2.1-6.9); NEUTROPHILS % 50.8 % (38.7-80.0); PLATELET COUNT 387 x10e3/uL (140-360); RED CELL DISTRIBUTION WIDTH 14.2 % (11.7-14.4)
[2020-09-28 12:09] LABS: ANION GAP 14.1 mmol/L (8-16); CALCIUM 10.5 mg/dL (8.4-10.2); CREATININE, SERUM 0.92 mg/dL (0.57-1.11); POTASSIUM 5.1 mmol/L (3.5-5.1)
[~2020-09-30] MED LIST changes: +B&O 60MG R/S 60 MG SUPP PR ONE; +CEFUROXIME250 MG PO; +GENTAMICIN 80MG/NS 100 ML 100 ML IV ONE; +IOPAMIDOL 300MG/ML 50ML INFUS..BTL IV ONE; +LIDOCAINE HCL 2% JELLY 5 ML TUBE ONE; +LIDOCAINE HCL 2% LOCAL INJ 5 ML SDV VIAL INJ ONE; +LOPRESSOR25 MG PO; +MEPERIDINE HCL INJ 25 MG/ML VIAL ONE; +MEROPENEM 1GM 100 ML IV ONE; +NEURONTIN100 MG PO; +NITROFURANTOIN100 MG PO; +ONDANSETRON HCL INJ 2MG/ML 2ML 2 MG/ML VIAL ONE; +OXYBUTYNIN CHLOR5 MG PO; +PROPOFOL IV EMULSION 10 MG/ML 20 ML VIAL ONE; +SEVOFLURANE INHAL SOLN 250 ML PEN BTL ONE; +TYLENOL # 31 EA PO; +VASOTEC10 MG PO
[2020-09-30 13:54] VITALS: BP 129/63
== END | disposition home or self-care (01) ==
LOC: OR 10:19
PROVIDERS: ATTEND Urology
DX: N13.30 Unspecified hydronephrosis (principal); Z46.6 Encounter for fitting and adjustment of urinary device; N39.0 Urinary tract infection, site not specified; N28.89 Other specified disorders of kidney and ureter; E11.22 Type 2 diabetes mellitus with diabetic chronic kidney disease; I12.9 Hypertensive chronic kidney disease with stage 1 through stage 4 chronic kidney disease, or unspecified chronic kidney disease; N18.9 Chronic kidney disease, unspecified; N28.1 Cyst of kidney, acquired; N81.10 Cystocele, unspecified; N81.6 Rectocele; N36.2 Urethral caruncle; N95.2 Postmenopausal atrophic vaginitis; N81.89 Other female genital prolapse; K42.9 Umbilical hernia without obstruction or gangrene; K40.90 Unilateral inguinal hernia, without obstruction or gangrene, not specified as recurrent; E66.9 Obesity, unspecified; Z88.0 Allergy status to penicillin; Z01.810 Encounter for preprocedural cardiovascular examination; Z01.812 Encounter for preprocedural laboratory examination; Z20.822 Contact with and (suspected) exposure to COVID-19
CPT/HCPCS: 36415; 52351; 74420; 80048; 85025; 93005; C1758; C1769; J1580; J2001 ×2; J2175; J2185; J2405; J2704; Q9967; U0002

== ENCOUNTER 2020-11-07 11:25 | Emergency (ER) | payer OTHER, MEDICARE ==
[~2020-11-07] VITALS: Ht 162.6 cm; Wt 79.8 kg
[~2020-11-07 11:25] MED LIST changes: -B&O 60MG R/S 60 MG SUPP PR ONE; -GENTAMICIN 80MG/NS 100 ML 100 ML IV ONE; -IOPAMIDOL 300MG/ML 50ML INFUS..BTL IV ONE; -LIDOCAINE HCL 2% JELLY 5 ML TUBE ONE; -LIDOCAINE HCL 2% LOCAL INJ 5 ML SDV VIAL INJ ONE; -MEPERIDINE HCL INJ 25 MG/ML VIAL ONE; -MEROPENEM 1GM 100 ML IV ONE; -ONDANSETRON HCL INJ 2MG/ML 2ML 2 MG/ML VIAL ONE; -PROPOFOL IV EMULSION 10 MG/ML 20 ML VIAL ONE; -SEVOFLURANE INHAL SOLN 250 ML PEN BTL ONE
[2020-11-07 13:03] VITALS: BP 104/59
== END 2020-11-07 13:10 | disposition home or self-care (01) ==
LOC: ER 11:32
DX: S90.31XA Contusion of right foot, initial encounter (principal); W01.0XXA Fall on same level from slipping, tripping and stumbling without subsequent striking against object, initial encounter; Y93.01 Activity, walking, marching and hiking; Y92.008 Other place in unspecified non-institutional (private) residence as the place of occurrence of the external cause; I10 Essential (primary) hypertension; F41.9 Anxiety disorder, unspecified; Z87.442 Personal history of urinary calculi
CPT/HCPCS: 99283

== ENCOUNTER → 2021-03-17 | Outpatient (CLI) | payer MEDICARE | LOC: US 10:57 | PROVIDERS: ATTEND Urology | DX: N39.0 Urinary tract infection, site not specified (principal) | CPT/HCPCS: 74018; 76770 ==

== ENCOUNTER 2021-04-06 18:06 | Emergency (ER) | payer MEDICARE ==
[~2021-04-06] VITALS: Ht 162.6 cm; Wt 79.8 kg
[2021-04-06] MEDS ORDERED: KETOROLAC TROMETHAMINE 30 MG/ML VIAL IM PRN (18:30)
[2021-04-06] MEDS ORDERED: Morphine 2mg Syringe 2 MG/ML SYR IM PRN (18:30)
[2021-04-06 18:34] LABS: COLOR,URINE STRAW (YELLOW)
[2021-04-06 18:35] LABS: CLARITY,URINE CLOUDY (CLEAR); KETONES,URINE NEGATIVE (NEGATIVE); LEUKOCYTE ESTERASE ,URINE MODERATE (NEGATIVE); NITRITE,URINE POSITIVE (NEGATIVE); PROTEIN,URINE DIPSTICK >=300 (NEGATIVE); URINE UROBILINOGEN 0.2 mg/dL (0.2 - 1)
[2021-04-06 18:47] LABS: BACTERIA,URINE MODERATE /HPF; WBC,URINE (MAN) 21-50 /HPF (0-5)
[2021-04-06] MEDS ORDERED: CEFTRIAXONE 1 GM VIAL IM NR (19:00)
[2021-04-06] MEDS ORDERED: LIDOCAINE HCL 2% LOCAL 20 ML VIAL ONE (19:37)
[2021-04-06 20:05] VITALS: BP 159/77
== END 2021-04-06 20:07 | disposition home or self-care (01) ==
LOC: ER 18:25
DX: S39.012A Strain of muscle, fascia and tendon of lower back, initial encounter (principal); N39.0 Urinary tract infection, site not specified; I10 Essential (primary) hypertension; F41.9 Anxiety disorder, unspecified; R73.03 Prediabetes
CPT/HCPCS: 81001; 99282; J0696; J1885; J2001; J2270

== ENCOUNTER 2021-04-19 12:43 | Inpatient (IN) | payer MEDICARE, OTHER ==
[~2021-04-19] VITALS: Ht 165.1 cm; Wt 74.8 kg
[2021-04-19] MEDS ORDERED: ACETAMINOPHEN 325 MG TAB PO STA (12:50)
[2021-04-19 13:11] LABS: BASOPHILS # (AUTO) 0.1 (0.0-0.1); BASOPHILS % 0.5 % (0.0-1.0); EOSINOPHILS # (AUTO) 0.1 (0.0-0.4); EOSINOPHILS % 1.1 % (0.0-6.0); HEMATOCRIT 44.4 % (34.2-44.1); LYMPHOCYTES # (AUTO) 2.6 (1.0-3.2); MEAN CORPUSCULAR HEMOGLOBIN 29.6 pg (28-32); MEAN CORPUSCULAR HGB CONC 31.5 g/dL (31-35); MEAN CORPUSCULAR VOLUME 93.9 fL (81-99); MONOCYTES # (AUTO) 0.9 (0.2-0.8); MONOCYTES % 8.4 % (4.4-11.3); NEUTROPHILS # (AUTO) 6.9 (2.1-6.9); NEUTROPHILS % 65.1 % (38.7-80.0); PLATELET COUNT 192 x10e3/uL (140-360); RED BLOOD COUNT 4.73 x10e6/uL (3.6-5.1); RED CELL DISTRIBUTION WIDTH 15.3 % (11.7-14.4)
[2021-04-19] MEDS ORDERED: LACTATED RINGER'S 1,000 ML INJ ONE (13:30)
[2021-04-19 13:31] LABS: ALBUMIN 2.5 g/dL (3.5-5.0); ALBUMIN/GLOBULIN RATIO 0.5 (0.8-2.0); ANION GAP 21.9 mmol/L (8-16); CALCIUM 8.8 mg/dL (8.4-10.2); CREATININE, SERUM 2.38 mg/dL (0.57-1.11); POTASSIUM 5.9 mmol/L (3.5-5.1)
[2021-04-19 13:35] LABS: CLARITY,URINE CLEAR (CLEAR); COLOR,URINE YELLOW (YELLOW); KETONES,URINE TRACE (NEGATIVE); LEUKOCYTE ESTERASE ,URINE TRACE (NEGATIVE); NITRITE,URINE NEGATIVE (NEGATIVE); PROTEIN,URINE DIPSTICK NEGATIVE (NEGATIVE); URINE UROBILINOGEN 0.2 mg/dL (0.2 - 1)
[2021-04-19] MEDS ORDERED: LACTATED RINGER'S 1,000 ML ONE (13:37)
[2021-04-19 13:39] LABS: BACTERIA,URINE FEW /HPF; EPITHELIAL CELLS,URINE MODERATE /LPF; MUCUS,URINE FEW (RARE); RBC,URINE 0-5 /HPF (0-5)
[2021-04-19] MEDS ORDERED: SODIUM CHLORIDE 0.9% 1000ML 2,390 ML IV SCH (13:45)
[2021-04-19] MEDS ORDERED: SODIUM CHLORIDE 0.9% 1000ML 1,000 ML ONE (13:59)
[2021-04-19] MEDS ORDERED: CEFEPIME 1 GM in SODIUM CHLORIDE 0.9% 50ML 50 ML IV ONE (14:00)
[2021-04-19] MEDS: SODIUM CHLORIDE 0.9% 1000ML 1,000 ML IV SCH ×2 (15:39→19:30)
[2021-04-19] MEDS ORDERED: GABAPENTIN600 MG PO (16:39)
[2021-04-19] MEDS ORDERED: VESICARE5 MG PO (16:39)
[2021-04-19] MEDS ORDERED: SIMVASTATIN20 MG PO (16:39)
[2021-04-19] MEDS ORDERED: CYCLOBENZAPRINE10 MG PO (16:39)
[2021-04-19 17:32] VITALS: BP 108/66
[2021-04-19 18:08] VITALS: BP 108/66
[2021-04-19 18:10] VITALS: BP 108/66
[2021-04-19 20:18] VITALS: BP 116/64
[2021-04-19 21:00] VITALS: BP 116/64
[2021-04-20] VITALS (10 sets, daily range): BP systolic 99–150; BP diastolic 63–81
[2021-04-20] MEDS: SODIUM CHLORIDE 0.9% 1000ML 1,000 ML IV SCH ×3 (04:19→17:54)
[2021-04-20] MEDS: ACETAMINOPHEN 325 MG TAB PO PRN ×2 (05:48→11:54)
[2021-04-20] MEDS ORDERED: ACETAMINOPHEN 325 MG TAB ONE (05:58)
[2021-04-20 07:47] LABS: ANION GAP 17.1 mmol/L (8-16); CALCIUM 7.8 mg/dL (8.4-10.2); CREATININE, SERUM 1.15 mg/dL (0.57-1.11); POTASSIUM 5.1 mmol/L (3.5-5.1)
[2021-04-20] MEDS ORDERED: CYCLOBENZAPRINE HCL 10 MG TAB PO SCH (15:00)
[2021-04-20] MEDS: CEFTRIAXONE 1 GM in SODIUM CHLORIDE 0.9% 50ML 50 ML IV SCH (15:08)
[2021-04-20] MEDS: GABAPENTIN 300 MG CAP PO SCH (15:14)
[2021-04-20] MEDS ORDERED: METHYLPREDNISOLONE SOD SUCC 40 MG/ML VIAL 1ML IV NR (17:30)
[2021-04-20] MEDS ORDERED: DIPHENHYDRAMINE HCL 25 MG CAP PO NR (17:30)
[2021-04-20] MEDS: PROMETHAZINE 12.5MG/ NACL 0.9% 12.5 MG/50 ML BAG IV PRN (17:54)
[2021-04-20] MEDS: SIMVASTATIN 20 MG TAB PO SCH (21:00)
[2021-04-20] MEDS: FAMOTIDINE 20 MG/2 ML VIAL IV SCH (21:14)
[2021-04-20] MEDS: METHYLPREDNISOLONE SOD SUCC 40 MG/ML VIAL 1ML IV SCH (21:15)
[2021-04-20] MEDS ORDERED: DIPHENHYDRAMINE HCL INJ 50 MG/ML VIAL IV ONE (21:15)
[2021-04-21] VITALS (9 sets, daily range): BP systolic 130–146; BP diastolic 65–92
[2021-04-21 00:02] LABS: BASOPHILS % 0.5 % (0.0-1.0); EOSINOPHILS # (AUTO) 0.2 (0.0-0.4); EOSINOPHILS % 1.8 % (0.0-6.0); HEMATOCRIT 42.1 % (34.2-44.1); HEMOGLOBIN 12.4 g/dL (12.0-16.0); LYMPHOCYTES # (AUTO) 1.2 (1.0-3.2); LYMPHOCYTES % 14.3 % (18.0-39.1); MEAN CORPUSCULAR HEMOGLOBIN 29.6 pg (28-32); MEAN CORPUSCULAR HGB CONC 29.5 g/dL (31-35); MEAN CORPUSCULAR VOLUME 100.5 fL (81-99); MONOCYTES # (AUTO) 0.6 (0.2-0.8); MONOCYTES % 6.5 % (4.4-11.3); NEUTROPHILS # (AUTO) 6.4 (2.1-6.9); NEUTROPHILS % 76.2 % (38.7-80.0); PLATELET COUNT 184 x10e3/uL (140-360); RED BLOOD COUNT 4.19 x10e6/uL (3.6-5.1); RED CELL DISTRIBUTION WIDTH 15.9 % (11.7-14.4)
[2021-04-21] MEDS: SODIUM CHLORIDE 0.9% 1000ML 1,000 ML IV SCH ×4 (00:27→20:53)
[2021-04-21] MEDS: DIPHENHYDRAMINE HCL INJ 50 MG/ML VIAL IV SCH ×3 (02:14→17:26)
[2021-04-21 05:00] LABS: BASOPHILS % 0.3 % (0.0-1.0); HEMATOCRIT 35.5 % (34.2-44.1); HEMOGLOBIN 11.2 g/dL (12.0-16.0); LYMPHOCYTES # (AUTO) 0.7 (1.0-3.2); LYMPHOCYTES % 11.7 % (18.0-39.1); MEAN CORPUSCULAR HEMOGLOBIN 29.4 pg (28-32); MEAN CORPUSCULAR HGB CONC 31.5 g/dL (31-35); MEAN CORPUSCULAR VOLUME 93.2 fL (81-99); MONOCYTES # (AUTO) 0.1 (0.2-0.8); MONOCYTES % 1.4 % (4.4-11.3); NEUTROPHILS # (AUTO) 5.4 (2.1-6.9); NEUTROPHILS % 85.8 % (38.7-80.0); PLATELET COUNT 180 x10e3/uL (140-360); RED BLOOD COUNT 3.81 x10e6/uL (3.6-5.1); RED CELL DISTRIBUTION WIDTH 14.6 % (11.7-14.4)
[2021-04-21 05:23] LABS: CALCIUM 7.3 mg/dL (8.4-10.2); CREATININE, SERUM 0.82 mg/dL (0.57-1.11)
[2021-04-21] MEDS: METHYLPREDNISOLONE SOD SUCC 40 MG/ML VIAL 1ML IV SCH ×3 (06:04→20:53)
[2021-04-21] MEDS: FAMOTIDINE 20 MG/2 ML VIAL IV SCH ×3 (06:04→20:53)
[2021-04-21] MEDS: SOLIFENACIN SUCCINATE 5 MG TAB PO SCH (08:01)
[2021-04-21] MEDS: METOPROLOL TARTRATE 25 MG TAB PO SCH (08:01)
[2021-04-21] MEDS: CEFTRIAXONE 1 GM in SODIUM CHLORIDE 0.9% 50ML 50 ML IV SCH (08:01)
[2021-04-21] MEDS: GABAPENTIN 300 MG CAP PO SCH ×2 (08:01→17:00)
[2021-04-21 09:42] LABS: LYMPHOCYTES % (MANUAL) 11 % (19-48); MONOCYTES % (MANUAL) 1 % (3.4-9.0); NEUTROPHILS % (MANUAL) 88 % (40-74)
[2021-04-21 09:43] LABS: PLATELET ESTIMATE ADEQUATE; PLATELET MORPHOLOGY COMMENT NORMAL; RBC MORPHOLOGY COMMENT NORMAL
[2021-04-21] MEDS: SIMVASTATIN 20 MG TAB PO SCH (20:53)
[2021-04-22] VITALS (7 sets, daily range): BP systolic 129–171; BP diastolic 44–117
[2021-04-22] MEDS: DIPHENHYDRAMINE HCL INJ 50 MG/ML VIAL IV SCH ×3 (02:14→17:05)
[2021-04-22] MEDS: SODIUM CHLORIDE 0.9% 1000ML 1,000 ML IV SCH ×3 (03:44→17:05)
[2021-04-22] MEDS: METHYLPREDNISOLONE SOD SUCC 40 MG/ML VIAL 1ML IV SCH ×3 (05:49→22:02)
[2021-04-22] MEDS: FAMOTIDINE 20 MG/2 ML VIAL IV SCH (05:49)
[2021-04-22 07:19] LABS: HEMATOCRIT 32.9 % (34.2-44.1); HEMOGLOBIN 10.6 g/dL (12.0-16.0); LYMPHOCYTES # (AUTO) 0.7 (1.0-3.2); LYMPHOCYTES % 8.5 % (18.0-39.1); MEAN CORPUSCULAR HEMOGLOBIN 29.7 pg (28-32); MEAN CORPUSCULAR HGB CONC 32.2 g/dL (31-35); MEAN CORPUSCULAR VOLUME 92.2 fL (81-99); MONOCYTES # (AUTO) 0.2 (0.2-0.8); MONOCYTES % 2.7 % (4.4-11.3); NEUTROPHILS # (AUTO) 7.5 (2.1-6.9); PLATELET COUNT 182 x10e3/uL (140-360); RED BLOOD COUNT 3.57 x10e6/uL (3.6-5.1); RED CELL DISTRIBUTION WIDTH 14.6 % (11.7-14.4)
[2021-04-22 07:52] LABS: ANION GAP 15.7 mmol/L (8-16); CALCIUM 7.2 mg/dL (8.4-10.2); CREATININE, SERUM 0.91 mg/dL (0.57-1.11); POTASSIUM 4.7 mmol/L (3.5-5.1)
[2021-04-22] MEDS: GABAPENTIN 300 MG CAP PO SCH ×3 (09:30→20:46)
[2021-04-22] MEDS: METOPROLOL TARTRATE 25 MG TAB PO SCH ×2 (09:30→22:04)
[2021-04-22] MEDS: SOLIFENACIN SUCCINATE 5 MG TAB PO SCH (09:30)
[2021-04-22] MEDS: MEROPENEM 500 MG in SODIUM CHLORIDE 0.9% 50ML 50 ML IV SCH ×2 (13:23→22:03)
[2021-04-22] MEDS: FAMOTIDINE 20 MG TAB PO SCH ×2 (13:24→22:03)
[2021-04-22] MEDS: SIMVASTATIN 20 MG TAB PO SCH (20:47)
[2021-04-22] MEDS ORDERED: NIFEDIPINE CR 30 MG TAB PO SCH (22:45)
[2021-04-23] VITALS (8 sets, daily range): BP systolic 127–184; BP diastolic 61–87
[2021-04-23] MEDS: DIPHENHYDRAMINE HCL INJ 50 MG/ML VIAL IV SCH ×3 (02:00→18:05)
[2021-04-23] MEDS: METOPROLOL TARTRATE 25 MG TAB PO SCH ×2 (06:00→14:00)
[2021-04-23] MEDS: MEROPENEM 500 MG in SODIUM CHLORIDE 0.9% 50ML 50 ML IV SCH ×2 (06:00→13:53)
[2021-04-23] MEDS: FAMOTIDINE 20 MG TAB PO SCH ×2 (06:00→13:54)
[2021-04-23] MEDS: METHYLPREDNISOLONE SOD SUCC 40 MG/ML VIAL 1ML IV SCH (08:12)
[2021-04-23] MEDS: SODIUM CHLORIDE 0.9% 1000ML 1,000 ML IV SCH ×2 (09:39→18:05)
[2021-04-23] MEDS: SOLIFENACIN SUCCINATE 5 MG TAB PO SCH (09:42)
[2021-04-23] MEDS: GABAPENTIN 300 MG CAP PO SCH ×2 (09:42→21:00)
[2021-04-23] MEDS ORDERED: ENALAPRIL MALEATE 10 MG TAB PO SCH (12:15)
[2021-04-23] MEDS ORDERED: METHYLPREDNISOLONE SOD SUCC 40 MG/ML VIAL 1ML IV SCH (14:00)
[2021-04-23] MEDS: SODIUM BICARBONATE 650 MG TAB PO SCH ×2 (15:53→21:56)
[2021-04-23] MEDS: NIFEDIPINE CR 30 MG TAB PO SCH ×2 (15:54→21:57)
[2021-04-23 17:44] LABS: ANION GAP 14.3 mmol/L (8-16); CALCIUM 7.7 mg/dL (8.4-10.2); CREATININE, SERUM 0.92 mg/dL (0.57-1.11); POTASSIUM 5.3 mmol/L (3.5-5.1)
[2021-04-23] MEDS: SIMVASTATIN 20 MG TAB PO SCH (21:58)
[2021-04-24] VITALS (8 sets, daily range): BP systolic 112–139; BP diastolic 67–85
[2021-04-24] MEDS: MEROPENEM 500 MG in SODIUM CHLORIDE 0.9% 50ML 50 ML IV SCH ×4 (00:10→21:42)
[2021-04-24] MEDS: FAMOTIDINE 20 MG TAB PO SCH ×4 (00:11→21:43)
[2021-04-24] MEDS: METOPROLOL TARTRATE 25 MG TAB PO SCH ×4 (00:12→21:43)
[2021-04-24] MEDS: DIPHENHYDRAMINE HCL INJ 50 MG/ML VIAL IV SCH ×3 (02:00→17:32)
[2021-04-24] MEDS: PROMETHAZINE 12.5MG/ NACL 0.9% 12.5 MG/50 ML BAG IV PRN (08:49)
[2021-04-24] MEDS: GABAPENTIN 300 MG CAP PO SCH ×2 (09:00→21:42)
[2021-04-24] MEDS: SOLIFENACIN SUCCINATE 5 MG TAB PO SCH (09:00)
[2021-04-24] MEDS: NIFEDIPINE CR 30 MG TAB PO SCH ×2 (09:00→21:42)
[2021-04-24] MEDS: SODIUM BICARBONATE 650 MG TAB PO SCH ×3 (09:00→21:42)
[2021-04-24 10:40] LABS: ANION GAP 15.6 mmol/L (8-16); CREATININE, SERUM 0.87 mg/dL (0.57-1.11); POTASSIUM 4.6 mmol/L (3.5-5.1)
[2021-04-24] MEDS: SODIUM CHLORIDE 0.9% 1000ML 1,000 ML IV SCH (16:29)
[2021-04-24] MEDS: SIMVASTATIN 20 MG TAB PO SCH (21:42)
[2021-04-25] VITALS (7 sets, daily range): BP systolic 97–133; BP diastolic 48–78
[2021-04-25] MEDS: DIPHENHYDRAMINE HCL INJ 50 MG/ML VIAL IV SCH ×3 (01:32→17:58)
[2021-04-25] MEDS: MEROPENEM 500 MG in SODIUM CHLORIDE 0.9% 50ML 50 ML IV SCH ×3 (06:38→21:34)
[2021-04-25] MEDS: FAMOTIDINE 20 MG TAB PO SCH ×3 (06:39→21:35)
[2021-04-25] MEDS: METOPROLOL TARTRATE 25 MG TAB PO SCH ×3 (06:39→21:35)
[2021-04-25] MEDS: SODIUM BICARBONATE 650 MG TAB PO SCH ×3 (09:00→21:34)
[2021-04-25] MEDS: SOLIFENACIN SUCCINATE 5 MG TAB PO SCH (09:00)
[2021-04-25] MEDS: NIFEDIPINE CR 30 MG TAB PO SCH ×2 (09:00→21:34)
[2021-04-25] MEDS: GABAPENTIN 300 MG CAP PO SCH ×2 (09:00→21:34)
[2021-04-25] MEDS: SODIUM CHLORIDE 0.9% 1000ML 1,000 ML IV SCH (12:29)
[2021-04-25] MEDS: NYSTATIN SUSPENSION 5 ML UDC PO SCH ×2 (14:00→21:35)
[2021-04-25] MEDS: SIMVASTATIN 20 MG TAB PO SCH (21:34)
[2021-04-25] MEDS: ACETAMINOPHEN 325 MG TAB PO PRN (23:50)
[2021-04-26] VITALS (8 sets, daily range): BP systolic 103–129; BP diastolic 61–91
[2021-04-26] MEDS: DIPHENHYDRAMINE HCL INJ 50 MG/ML VIAL IV SCH ×3 (01:50→17:59)
[2021-04-26] MEDS: MEROPENEM 500 MG in SODIUM CHLORIDE 0.9% 50ML 50 ML IV SCH ×3 (05:22→22:58)
[2021-04-26] MEDS: FAMOTIDINE 20 MG TAB PO SCH ×3 (05:22→22:58)
[2021-04-26] MEDS: NYSTATIN SUSPENSION 5 ML UDC PO SCH ×3 (05:22→22:58)
[2021-04-26] MEDS: METOPROLOL TARTRATE 25 MG TAB PO SCH ×3 (05:22→22:58)
[2021-04-26] MEDS: SODIUM CHLORIDE 0.9% 1000ML 1,000 ML IV SCH (05:23)
[2021-04-26] MEDS: SOLIFENACIN SUCCINATE 5 MG TAB PO SCH (10:59)
[2021-04-26] MEDS: NIFEDIPINE CR 30 MG TAB PO SCH ×2 (10:59→22:57)
[2021-04-26] MEDS: SODIUM BICARBONATE 650 MG TAB PO SCH ×3 (10:59→22:57)
[2021-04-26] MEDS: GABAPENTIN 300 MG CAP PO SCH ×2 (10:59→22:57)
[2021-04-26] MEDS: ACETAMINOPHEN 325 MG TAB PO PRN ×2 (11:31→22:58)
[2021-04-26] MEDS: SIMVASTATIN 20 MG TAB PO SCH (22:57)
[2021-04-27] VITALS (9 sets, daily range): BP systolic 92–107; BP diastolic 52–72
[2021-04-27] MEDS: DIPHENHYDRAMINE HCL INJ 50 MG/ML VIAL IV SCH (02:05)
[2021-04-27] MEDS: SODIUM CHLORIDE 0.9% 1000ML 1,000 ML IV SCH ×2 (02:09→22:51)
[2021-04-27] MEDS: MEROPENEM 500 MG in SODIUM CHLORIDE 0.9% 50ML 50 ML IV SCH ×3 (05:56→21:49)
[2021-04-27] MEDS: ACETAMINOPHEN 325 MG TAB PO PRN ×2 (05:59→21:50)
[2021-04-27] MEDS: NYSTATIN SUSPENSION 5 ML UDC PO SCH ×3 (05:59→21:49)
[2021-04-27] MEDS: FAMOTIDINE 20 MG TAB PO SCH ×3 (05:59→21:49)
[2021-04-27] MEDS: METOPROLOL TARTRATE 25 MG TAB PO SCH ×3 (05:59→21:49)
[2021-04-27 06:47] LABS: BASOPHILS % 0.3 % (0.0-1.0); EOSINOPHILS # (AUTO) 0.2 (0.0-0.4); EOSINOPHILS % 2.2 % (0.0-6.0); HEMATOCRIT 40.4 % (34.2-44.1); HEMOGLOBIN 12.8 g/dL (12.0-16.0); LYMPHOCYTES % 19.3 % (18.0-39.1); MEAN CORPUSCULAR HEMOGLOBIN 29.4 pg (28-32); MEAN CORPUSCULAR HGB CONC 31.7 g/dL (31-35); MEAN CORPUSCULAR VOLUME 92.9 fL (81-99); MONOCYTES # (AUTO) 0.6 (0.2-0.8); MONOCYTES % 6.1 % (4.4-11.3); NEUTROPHILS # (AUTO) 7.2 (2.1-6.9); NEUTROPHILS % 69.6 % (38.7-80.0); PLATELET COUNT 188 x10e3/uL (140-360); RED BLOOD COUNT 4.35 x10e6/uL (3.6-5.1)
[2021-04-27 07:04] LABS: ANION GAP 13.9 mmol/L (8-16); CALCIUM 7.6 mg/dL (8.4-10.2); CREATININE, SERUM 0.75 mg/dL (0.57-1.11); POTASSIUM 3.9 mmol/L (3.5-5.1)
[2021-04-27] MEDS: NIFEDIPINE CR 30 MG TAB PO SCH ×2 (09:36→21:48)
[2021-04-27] MEDS: SODIUM BICARBONATE 650 MG TAB PO SCH ×3 (09:36→21:49)
[2021-04-27] MEDS: SOLIFENACIN SUCCINATE 5 MG TAB PO SCH (09:37)
[2021-04-27] MEDS ORDERED: GABAPENTIN 300 MG CAP PO SCH (21:00)
[2021-04-27] MEDS: SIMVASTATIN 20 MG TAB PO SCH (21:49)
[2021-04-27] MEDS: PROMETHAZINE 12.5MG/ NACL 0.9% 12.5 MG/50 ML BAG IV PRN (22:06)
[2021-04-28] VITALS (7 sets, daily range): BP systolic 106–122; BP diastolic 63–71
[2021-04-28] MEDS: METOPROLOL TARTRATE 25 MG TAB PO SCH ×3 (06:33→21:22)
[2021-04-28] MEDS: MEROPENEM 500 MG in SODIUM CHLORIDE 0.9% 50ML 50 ML IV SCH ×3 (06:33→21:22)
[2021-04-28] MEDS: FAMOTIDINE 20 MG TAB PO SCH ×3 (06:33→21:23)
[2021-04-28 07:17] LABS: BASOPHILS % 0.3 % (0.0-1.0); EOSINOPHILS # (AUTO) 0.2 (0.0-0.4); EOSINOPHILS % 1.9 % (0.0-6.0); HEMATOCRIT 39.1 % (34.2-44.1); HEMOGLOBIN 12.5 g/dL (12.0-16.0); LYMPHOCYTES # (AUTO) 1.7 (1.0-3.2); LYMPHOCYTES % 17.9 % (18.0-39.1); MEAN CORPUSCULAR HEMOGLOBIN 29.1 pg (28-32); MEAN CORPUSCULAR VOLUME 91.1 fL (81-99); MONOCYTES # (AUTO) 0.8 (0.2-0.8); MONOCYTES % 8.4 % (4.4-11.3); NEUTROPHILS # (AUTO) 6.6 (2.1-6.9); PLATELET COUNT 223 x10e3/uL (140-360); RED BLOOD COUNT 4.29 x10e6/uL (3.6-5.1); RED CELL DISTRIBUTION WIDTH 14.7 % (11.7-14.4)
[2021-04-28 07:56] LABS: ANION GAP 15.6 mmol/L (8-16); CALCIUM 7.9 mg/dL (8.4-10.2); CREATININE, SERUM 0.72 mg/dL (0.57-1.11); POTASSIUM 3.6 mmol/L (3.5-5.1)
[2021-04-28] MEDS: PROMETHAZINE 12.5MG/ NACL 0.9% 12.5 MG/50 ML BAG IV PRN (08:59)
[2021-04-28] MEDS: SODIUM BICARBONATE 650 MG TAB PO SCH ×3 (08:59→21:00)
[2021-04-28] MEDS: ACETAMINOPHEN 325 MG TAB PO PRN (08:59)
[2021-04-28] MEDS: NIFEDIPINE CR 30 MG TAB PO SCH ×2 (08:59→21:00)
[2021-04-28] MEDS: TRAMADOL HCL 50 MG TAB PO PRN (09:50)
[2021-04-28] MEDS: SIMVASTATIN 20 MG TAB PO SCH (21:00)
[2021-04-28] MEDS: SODIUM CHLORIDE 0.9% 1000ML 1,000 ML IV SCH (23:22)
[2021-04-29] VITALS (7 sets, daily range): BP systolic 95–118; BP diastolic 58–72
[2021-04-29] MEDS: MEROPENEM 500 MG in SODIUM CHLORIDE 0.9% 50ML 50 ML IV SCH (05:14)
[2021-04-29] MEDS: METOPROLOL TARTRATE 25 MG TAB PO SCH ×3 (05:14→21:04)
[2021-04-29] MEDS: FAMOTIDINE 20 MG TAB PO SCH (05:15)
[2021-04-29] MEDS: NIFEDIPINE CR 30 MG TAB PO SCH ×2 (09:00→20:57)
[2021-04-29] MEDS: SODIUM BICARBONATE 650 MG TAB PO SCH ×3 (10:34→20:57)
[2021-04-29] MEDS: TRAMADOL HCL 50 MG TAB PO PRN (10:38)
[2021-04-29] MEDS ORDERED: DIPHENHYDRAMINE HCL 25 MG CAP PO PRN (11:30)
[2021-04-29] MEDS ORDERED: METHYLPREDNISOLONE SOD SUCC 40 MG/ML VIAL 1ML IV ONE (12:00)
[2021-04-29] MEDS ORDERED: FAMOTIDINE 20 MG/2 ML VIAL IV ONE (12:00)
[2021-04-29] MEDS: NYSTATIN SUSPENSION 5 ML UDC PO SCH ×2 (13:12→21:04)
[2021-04-29] MEDS: ACETAMINOPHEN 325 MG TAB PO PRN (13:39)
[2021-04-29] MEDS: SODIUM CHLORIDE 0.9% 1000ML 1,000 ML IV SCH (17:45)
[2021-04-29] MEDS: FAMOTIDINE 20 MG/2 ML VIAL IV SCH (17:46)
[2021-04-29] MEDS: METHYLPREDNISOLONE SOD SUCC 40 MG/ML VIAL 1ML IV SCH (20:00)
[2021-04-29] MEDS: SIMVASTATIN 20 MG TAB PO SCH (20:57)
[2021-04-30 01:10] VITALS: BP 118/77
[2021-04-30] MEDS: METHYLPREDNISOLONE SOD SUCC 40 MG/ML VIAL 1ML IV SCH (03:09)
[2021-04-30] MEDS: METOPROLOL TARTRATE 25 MG TAB PO SCH (05:08)
[2021-04-30] MEDS: NYSTATIN SUSPENSION 5 ML UDC PO SCH (05:09)
[2021-04-30 05:36] VITALS: BP 118/72
[2021-04-30 07:55] VITALS: BP 118/67
[2021-04-30 08:00] VITALS: BP 118/67
[2021-04-30] MEDS: FAMOTIDINE 20 MG/2 ML VIAL IV SCH (08:24)
[2021-04-30] MEDS: SODIUM BICARBONATE 650 MG TAB PO SCH (08:25)
[2021-04-30] MEDS: NIFEDIPINE CR 30 MG TAB PO SCH (08:26)
[2021-04-30] MEDS ORDERED: PEPCID20 MG PO (09:13)
[2021-04-30] MEDS ORDERED: NYSTATIN100000 UNI PO (09:13)
[2021-04-30] MEDS ORDERED: LOPRESSOR25 MG PO (09:13)
[2021-04-30] MEDS ORDERED: HIPREX1 GM PO (09:13)
[2021-04-30] MEDS ORDERED: SODIUM BICARBO650 MG PO (09:13)
[2021-04-30] MEDS ORDERED: NIFEDIPINE ER30 M1 PO (09:13)
[2021-04-30] MEDS ORDERED: PREDNISONE20 MG PO (09:13)
[2021-04-30] MEDS ORDERED: SIMVASTATIN20 MG PO (09:13)
== END 2021-04-30 10:20 | disposition home or self-care (01) | DRG 690 ==
LOC: ER 13:06 → ERHOLD 16:07 → MED/SURG2 17:22 → IMCU 04-20 22:43 → MED/SURG2 04-22 00:28
PROVIDERS: ADMIT Internal Medicine; ATTEND Internal Medicine
PROC: 02HV33Z Insertion of Infusion Device into Superior Vena Cava, Percutaneous Approach (ICD-10-PCS; principal; 2021-04-23)
DX: N30.00 Acute cystitis without hematuria (principal); N17.9 Acute kidney failure, unspecified; M48.54XA Collapsed vertebra, not elsewhere classified, thoracic region, initial encounter for fracture; Z16.24 Resistance to multiple antibiotics; E87.5 Hyperkalemia; R91.8 Other nonspecific abnormal finding of lung field; R53.81 Other malaise; T78.3XXA Angioneurotic edema, initial encounter; T48.1X5A Adverse effect of skeletal muscle relaxants [neuromuscular blocking agents], initial encounter; B96.4 Proteus (mirabilis) (morganii) as the cause of diseases classified elsewhere; D64.9 Anemia, unspecified; E66.9 Obesity, unspecified; R50.2 Drug induced fever; T42.6X5A Adverse effect of other antiepileptic and sedative-hypnotic drugs, initial encounter; Y92.230 Patient room in hospital as the place of occurrence of the external cause; T36.1X5A Adverse effect of cephalosporins and other beta-lactam antibiotics, initial encounter; Z87.442 Personal history of urinary calculi; Z87.440 Personal history of urinary (tract) infections; R32 Unspecified urinary incontinence; N81.10 Cystocele, unspecified; N81.6 Rectocele; N95.2 Postmenopausal atrophic vaginitis; Z68.27 Body mass index [BMI] 27.0-27.9, adult; N18.9 Chronic kidney disease, unspecified
CPT/HCPCS: 36415; 36569; 71045; 74176; 80048; 80053; 81001; 82948; 83605; 84132; 85025; 87040; 87086; 87186; 93005; 94799; 97139; 99251; 99284; J0696; J1200; J2185; J2550; J2920; J7030; J7121; U0002

== ENCOUNTER 2024-08-19 14:46 | Emergency (ER) | payer MEDICARE ==
[~2024-08-19] VITALS: Ht 162.6 cm; Wt 77.1 kg
[~2024-08-19 14:46] MED LIST changes: +CYCLOBENZAPRINE10 MG PO; +GABAPENTIN600 MG PO; +HIPREX1 GM PO; +NIFEDIPINE ER30 M1 PO; +NYSTATIN100000 UNI PO; +PEPCID20 MG PO; +PREDNISONE20 MG PO; +SIMVASTATIN20 MG PO; +SODIUM BICARBO650 MG PO; +VESICARE5 MG PO
[2024-08-19 15:27] VITALS: PULSE 95; RESP 16; TEMP 98.7; O2SAT 100
[2024-08-19 15:39] LABS: BASOPHILS % 0.4 % (0.0-1.0); EOSINOPHILS # (AUTO) 0.1 (0.0-0.4); EOSINOPHILS % 1.9 % (0.0-6.0); HEMATOCRIT 43.3 % (34.2-44.1); HEMOGLOBIN 13.6 g/dL (12.0-16.0); LYMPHOCYTES # (AUTO) 2.6 (1.0-3.2); LYMPHOCYTES % 38.4 % (18.0-39.1); MEAN CORPUSCULAR HEMOGLOBIN 29.4 pg (28-32); MEAN CORPUSCULAR HGB CONC 31.4 g/dL (31-35); MEAN CORPUSCULAR VOLUME 93.5 fL (81-99); MONOCYTES # (AUTO) 0.6 (0.2-0.8); MONOCYTES % 8.3 % (4.4-11.3); NEUTROPHILS # (AUTO) 3.5 (2.1-6.9); NEUTROPHILS % 50.6 % (38.7-80.0); PLATELET COUNT 231 x10e3/uL (140-360); RED BLOOD COUNT 4.63 x10e6/uL (3.6-5.1); RED CELL DISTRIBUTION WIDTH 14.3 % (11.7-14.4); WHITE BLOOD COUNT 6.83 x10e3/uL (4.8-10.8)
[2024-08-19 16:00] LABS: ALBUMIN 3.3 g/dL (3.5-5.0); ALBUMIN/GLOBULIN RATIO 0.9 (0.8-2.0); ANION GAP 15.8 mmol/L (8-16); BILIRUBIN,TOTAL 0.5 mg/dL (0.2-1.2); CALCIUM 9.2 mg/dL (8.4-10.2); CREATININE, SERUM 1.35 mg/dL (0.57-1.11); POTASSIUM 4.8 mmol/L (3.5-5.1)
[2024-08-19 17:13] LABS: BILIRUBIN,URINE NEGATIVE (NEGATIVE); CLARITY,URINE CLOUDY (CLEAR); COLOR,URINE YELLOW (YELLOW); GLUCOSE, URINE NEGATIVE (NEGATIVE); KETONES,URINE NEGATIVE (NEGATIVE); LEUKOCYTE ESTERASE ,URINE SMALL (NEGATIVE); NITRITE,URINE NEGATIVE (NEGATIVE); PH,URINE 5.5 (5 - 7); PROTEIN,URINE DIPSTICK 1+ (NEGATIVE); URINE UROBILINOGEN 0.2 mg/dL (0.2 - 1)
[2024-08-19 17:16] LABS: WBC,URINE (MAN) >50 /HPF (0-5)
[2024-08-19 17:17] LABS: RBC,URINE >50 /HPF (0-5)
[2024-08-19 17:18] LABS: BACTERIA,URINE MODERATE /HPF
[2024-08-19 17:19] LABS: EPITHELIAL CELLS,URINE MODERATE /LPF
[2024-08-19] MEDS ORDERED: CEPHALEXIN500 MG PO (17:27)
[2024-08-19] MEDS: SODIUM CHLORIDE 0.9% 1000ML 1,000 ML IV ONE (17:35)
== END 2024-08-19 18:30 | disposition home or self-care (01) ==
LOC: ER 16:45
DX: R30.0 Dysuria (principal); N39.0 Urinary tract infection, site not specified; R10.31 Right lower quadrant pain; S22.080D Wedge compression fracture of T11-T12 vertebra, subsequent encounter for fracture with routine healing; K57.90 Diverticulosis of intestine, part unspecified, without perforation or abscess without bleeding; K40.90 Unilateral inguinal hernia, without obstruction or gangrene, not specified as recurrent; I12.0 Hypertensive chronic kidney disease with stage 5 chronic kidney disease or end stage renal disease; N18.6 End stage renal disease
CPT/HCPCS: 36415; 74176; 80053; 81001; 85025; 87086; 87186; 99284; J7030

== ENCOUNTER → 2024-08-26 | Outpatient (REF) | payer MEDICARE ==
[~2024-08-26] MED LIST changes: +CEPHALEXIN500 MG PO
== END ==
LOC: US 11:28
PROVIDERS: ATTEND Urology
DX: R31.21 Asymptomatic microscopic hematuria (principal)
CPT/HCPCS: 74018; 76770; 76857

== ENCOUNTER 2025-01-16 09:50 | Inpatient (IN) | payer MEDICARE ==
[2025-01-16] VITALS (9 sets, daily range): BP systolic 117–145; BP diastolic 74–75; PULSE 74–82; RESP 18–20; TEMP 98–98.5; O2SAT 96–98
[~2025-01-16] VITALS: Ht 162.6 cm; Wt 77.1 kg
[~2025-01-16 09:50] MED LIST changes: +BAYER WOMEN'S1 EACH; +FOSAMAX PLUS D1 EACH PO; +NEURONTIN400 MG PO
[2025-01-16 10:24] LABS: BASOPHILS % 0.4 % (0.0-1.0); EOSINOPHILS % 1.7 % (0.0-6.0); LYMPHOCYTES % 20.5 % (18.0-39.1); MONOCYTES % 5.3 % (4.4-11.3); NEUTROPHILS % 71.8 % (38.7-80.0); RED CELL DISTRIBUTION WIDTH 14.6 % (11.7-14.4)
[2025-01-16] MEDS: SODIUM CHLORIDE 0.9% IV SCH (10:46)
[2025-01-16] MEDS: ACETAMINOPHEN 325 MG TAB PO ONE (10:46)
[2025-01-16 10:49] LABS: INR 0.89
[2025-01-16 10:53] LABS: EST GLOMERULAR FILTRATION RATE 69.0 ML/MIN (>=60)
[2025-01-16 12:04] LABS: LEUKOCYTE ESTERASE ,URINE SMALL (NEGATIVE)
[2025-01-16 12:05] LABS: PROTEIN,URINE DIPSTICK TRACE (NEGATIVE); URINE UROBILINOGEN 0.2 mg/dL (0.2 - 1)
[2025-01-16 12:07] LABS: EPITHELIAL CELLS,URINE MANY /LPF; WBC,URINE (MAN) >50 /HPF (0-5)
[2025-01-16] MEDS ORDERED: ALBUTEROL/IPRATROPIUM 3 ML NEB NEB PRN (17:15)
[2025-01-16] MEDS ORDERED: SIMETHICONE 80 MG CHEW PO PRN (17:15)
[2025-01-16] MEDS ORDERED: LIDOCAINE 4% PATCH TP PRN (17:15)
[2025-01-16] MEDS ORDERED: DOCUSATE SODIUM 100 MG CAP PO PRN (17:15)
[2025-01-16] MEDS ORDERED: ONDANSETRON HCL INJ 2MG/ML 2ML 2 MG/ML VIAL IV PRN (17:15)
[2025-01-16] MEDS ORDERED: HYDRALAZINE HCL 20 MG/ML VIAL IV PRN (17:15)
[2025-01-16] MEDS ORDERED: BENZONATATE 100 MG CAP PO PRN (17:15)
[2025-01-16] MEDS ORDERED: DEXTROSE 50% SYRINGE 50 ML IV PRN (17:15)
[2025-01-16] MEDS ORDERED: POTASSIUM CHLORIDE 20 MEQ TAB CR PO PRN (17:15)
[2025-01-16] MEDS ORDERED: DIPHENHYDRAMINE HCL 25 MG CAP PO PRN (17:15)
[2025-01-16] MEDS: SODIUM CHLORIDE 0.9% 1000ML 1,000 ML IV SCH (17:42)
[2025-01-16] MEDS ORDERED: VITAMIN D (18:41)
[2025-01-16] MEDS ORDERED: ACETAMINOPHEN/COD PO ×2 (19:33→19:39)
[2025-01-16] MEDS ORDERED: MELATONIN 5 MG TABLET PO PRN (21:00)
[2025-01-17] VITALS (13 sets, daily range): BP systolic 132–180; BP diastolic 76–97; PULSE 66–83; RESP 16–20; TEMP 98.1–98.7; O2SAT 94–100
[2025-01-17 05:39] LABS: BASOPHILS % 0.4 % (0.0-1.0); EOSINOPHILS % 2.5 % (0.0-6.0); LYMPHOCYTES % 36.7 % (18.0-39.1); MONOCYTES % 7.0 % (4.4-11.3); NEUTROPHILS % 53.2 % (38.7-80.0); RED CELL DISTRIBUTION WIDTH 14.6 % (11.7-14.4)
[2025-01-17 06:02] LABS: EST GLOMERULAR FILTRATION RATE 84.0 ML/MIN (>=60)
[2025-01-17] MEDS: ACETAMINOPHEN 325 MG TAB PO PRN (08:51)
[2025-01-17] MEDS: PANTOPRAZOLE SOD 40 MG TABEC PO SCH (08:51)
[2025-01-17] MEDS: ENOXAPARIN SOD INJ 40 MG/0.4 ML SYR SC SCH (17:23)
[2025-01-17] MEDS: ENALAPRIL MALEATE 10 MG TAB PO SCH (17:24)
[2025-01-17] MEDS: GABAPENTIN 300 MG CAP PO SCH (21:06)
[2025-01-17] MEDS: METOPROLOL TARTRATE 25 MG TAB PO SCH (21:06)
[2025-01-18] VITALS (13 sets, daily range): BP systolic 113–161; BP diastolic 69–90; PULSE 63–94; RESP 16–20; TEMP 97.6–98.9; O2SAT 93–100
[2025-01-18 06:36] LABS: BASOPHILS % 0.8 % (0.0-1.0); EOSINOPHILS % 4.7 % (0.0-6.0); LYMPHOCYTES % 30.6 % (18.0-39.1); MONOCYTES % 10.9 % (4.4-11.3); NEUTROPHILS % 52.8 % (38.7-80.0); RED CELL DISTRIBUTION WIDTH 14.5 % (11.7-14.4)
[2025-01-18 06:49] LABS: EST GLOMERULAR FILTRATION RATE 87.0 ML/MIN (>=60)
[2025-01-19] VITALS (8 sets, daily range): BP systolic 98–130; BP diastolic 48–68; PULSE 67–82; RESP 16–18; TEMP 96.2–98; O2SAT 95–100
[2025-01-19] MEDS: FLUCONAZOLE 100 MG TAB PO ONE (17:08)
== END 2025-01-19 18:30 | disposition home or self-care (01) | DRG 759 ==
LOC: ER 09:58 → ERHOLD 12:36 → MED/SURG3 15:40
PROVIDERS: ADMIT Internal Medicine; ATTEND Internal Medicine
DX: B37.49 Other urogenital candidiasis (principal); R30.0 Dysuria; I10 Essential (primary) hypertension; R73.03 Prediabetes; F32.A Depression, unspecified; E78.5 Hyperlipidemia, unspecified; M54.9 Dorsalgia, unspecified; M19.90 Unspecified osteoarthritis, unspecified site; G62.9 Polyneuropathy, unspecified; G89.4 Chronic pain syndrome; Z87.442 Personal history of urinary calculi; Z87.440 Personal history of urinary (tract) infections; Z79.82 Long term (current) use of aspirin; Z79.52 Long term (current) use of systemic steroids
CPT/HCPCS: 36415; 71045; 80048; 80053; 81001; 82948; 83605; 83735; 85025; 85610; 85730; 87040; 87086; 93005; 94799; 99284; J1650; J2185; J2470; J2543; J7030